=== PATIENT | female | born 1990 | race Hispanic/Latino ===

== ENCOUNTER 2024-09-07 12:19 | Outpatient (CLI) | payer OTHER | END 2024-09-07 12:20 | disposition home or self-care (01) | LOC: CSHULT 12:19 | PROVIDERS: ATTEND Advanced Practice Midwife | DX: Z34.93 Encounter for supervision of normal pregnancy, unspecified, third trimester (principal); Z3A.35 35 weeks gestation of pregnancy | CPT/HCPCS: 76805 ==

== ENCOUNTER 2024-10-06 04:18 | Inpatient (IN) | payer MEDICAID, OTHER, SELFPAY ==
[2024-10-06 06:31] LABS: Hematocrit 34.8 % (34.9-44.5); Hemoglobin 11.4 g/dL (12.0-15.5); Mean Corpuscular HGB CONC 32.8 g/dL (32.0-36.0); Mean Corpuscular Hemoglobin 31.8 pg (27.0-33.0); Mean Corpuscular Volume 96.9 fL (81.6-98.3); Mean Platelet Volume 10.6 fL (7.4-10.4); Platelet Count 226 10x3/uL (150-450); RBC Distribution Width 13.1 % (11.5-14.5); Red Blood Cell (RBC) Count 3.59 10x6/uL (3.90-5.03); White Blood Cell (WBC) Count 7.2 10x3/uL (3.5-10.5)
[2024-10-06] MEDS ORDERED: fentaNYL 50 mcg/mL 1 mL Vial SLOW IVP PRN (06:43)
[2024-10-06] MEDS ORDERED: Ondansetron PF 4 MG/2 ML Vial IVP PRN ×2 (06:45→07:36)
[2024-10-06] MEDS ORDERED: hydrALAZINE 20 MG/ML VIAL SLOW IVP PRN (06:45)
[2024-10-06] MEDS ORDERED: Oxytocin 30 units/NS 500 ML 500 ML IVPB SCH (06:45)
[2024-10-06] MEDS ORDERED: Promethazine HCl 25 MG/ML VIAL IM PRN ×2 (06:45→07:36)
[2024-10-06] MEDS ORDERED: Lidocaine 1% (PF) 30 ML VIAL SC PRN (06:45)
[2024-10-06] MEDS ORDERED: Acetaminophen 500 MG TAB PO PRN (06:45)
[2024-10-06] MEDS ORDERED: Lactated Ringer's 1,000 ML IV SCH (06:45)
[2024-10-06 07:02] LABS: Syphilis Antibody Nonreactive (Nonreactive); Syphilis Antibody Index 0.11 S/CO (<1.00 Non-Reactive)
[2024-10-06 07:04] LABS: HBsAg Index 0.17 S/CO (0-0.99); Hep B Surf Ag - L&D Non-Reactive S/CO (NonReactive)
[2024-10-06] MEDS: fentaNYL/Ropivacaine Epidural 100 ML ONE (07:28)
[2024-10-06] MEDS ORDERED: Lactated Ringer's 500 ML IV PRN (07:36)
[2024-10-06] MEDS ORDERED: Acetaminophen 325 MG TAB PO PRN (07:36)
[2024-10-06] MEDS ORDERED: diphenhydrAMINE 50 MG/ML VIAL IVP PRN (07:36)
[2024-10-06] MEDS ORDERED: Naloxone HCl 0.4 mg/ml Vial IVP PRN ×2 (07:36)
[2024-10-06] MEDS ORDERED: ePHEDrine Sulfate 50 MG/10 ML VIAL SLOW IVP PRN (07:36)
[2024-10-06] MEDS ORDERED: Moisturizing Cream (Eucerin) 113 GM JAR TOP PRN (07:36)
[2024-10-06] MEDS ORDERED: Communication Order-Pharmacy FS SCH (07:45)
[2024-10-06] MEDS ORDERED: fentaNYL 2 mcg/Ropivacaine 0.2% Epidural 100 ML CADD EPIDURAL SCH (07:45)
[2024-10-06] MEDS: CEFAZOLIN 2 GM in Sodium Chloride 0.9% 100 ML IVPB SCH (15:34)
[2024-10-06] MEDS ORDERED: Azithromycin 1,000 MG in Sodium Chloride 0.9% 500 ML IVPB SCH (16:00)
[2024-10-06] MEDS ORDERED: Azithromycin 500 MG in Sodium Chloride 0.9% 250 ML 250 ML IVPB SCH (16:30)
[2024-10-06] MEDS: Azithromycin 1,000 MG in Sodium Chloride 0.9% 500 ML IVPB SCH (18:01)
[2024-10-06] MEDS: Ibuprofen 800 MG TAB PO SCH (21:30)
[2024-10-07] MEDS ORDERED: Bupivacaine 0.25% HCL 30 ML VIAL ONE (08:00)
[2024-10-07 12:51] VITALS: BP 93/50; TEMP 98.2
== END 2024-10-07 17:30 | disposition home or self-care (01) | DRG 806 ==
LOC: CSHLD/OP 04:18 → CSHLD 05:52 → CSHPED 17:11
PROVIDERS: ADMIT Family Medicine; ATTEND Family Medicine
PROC: 10E0XZZ Delivery of Products of Conception, External Approach (ICD-10-PCS; principal; 2024-10-06)
PROC: 10D17Z9 Manual Extraction of Products of Conception, Retained, Via Natural or Artificial Opening (ICD-10-PCS; 2024-10-06)
PROC: 0UQGXZZ Repair Vagina, External Approach (ICD-10-PCS; 2024-10-06)
DX: O34.211 Maternal care for low transverse scar from previous cesarean delivery (principal); O71.4 Obstetric high vaginal laceration alone; Z37.0 Single live birth; Z3A.39 39 weeks gestation of pregnancy; O69.89X0 Labor and delivery complicated by other cord complications, not applicable or unspecified
CPT/HCPCS: 51702; 85027; 86780; 86850; 86900; 86901; 87340; 99285; J0456; J0665; J7030